=== PATIENT | male | born 1950 | race Caucasian/White ===

== ENCOUNTER 2016-10-29 10:06 | Emergency (ER) | payer BC, OTHER ==
[2016-10-29 10:31] VITALS: BP 179/89
[2016-10-29] MEDS ORDERED: Sodium Chloride 0.9% 1,000 ML ONE (10:58)
[2016-10-29] MEDS ORDERED: Sodium Chloride 0.9% 1,000 ML IV ONE (11:13)
[2016-10-29] MEDS ORDERED: Morphine 2 MG/ML Syringe ONE (11:34)
[2016-10-29] MEDS ORDERED: Morphine 2 MG/ML Syringe IVPUSH ONE (11:36)
[2016-10-29] MEDS ORDERED: HYDROmorphone 1 MG/ML Syringe IVPUSH ONE (12:00)
[2016-10-29] MEDS ORDERED: Ondansetron 4 MG/2 ML SDV ONE (12:01)
[2016-10-29] MEDS ORDERED: Ondansetron 4 MG/2 ML SDV IVPUSH ONE ×2 (12:01→14:43)
[2016-10-29] MEDS ORDERED: HYDROmorphone 1 MG/ML Syringe ONE (12:01)
[2016-10-29] MEDS ORDERED: Ketorolac 30 MG/ML SDV IVPUSH ONE (14:43)
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
== END 2016-10-29 15:15 | disposition critical access hospital (66) ==
LOC: KA.ED 10:06
DX: N13.2 Hydronephrosis with renal and ureteral calculous obstruction (principal)
CPT/HCPCS: 36415; 74176; 80048; 81001; 85025; 96361; 96374; 96375; 96376; 99285; J1170; J1885; J2270; J2405; J7030